=== PATIENT | male | born 1955 | race Caucasian/White ===

== ENCOUNTER → 2017-01-12 | Outpatient (CLI) | payer OTHER ==
[2017-01-12 21:16] LABS: Basophils % (A) 1 %; CH 27.5; CHCM 31.2; Eosinophils # (A) 0.1 k/uL (0-0.7); Eosinophils % (A) 3 %; HCT 43.3 % (39.0-53.0); HDW 2.31; HGB 13.1 gm/dL (13.0-17.5); Hypochromasia Slight; Luc # (Auto) 0.07; Luc % (Auto) 1; Lymphocytes # (A) 1.7 k/uL (1.0-4.8); Lymphocytes % (A) 33 %; MCH 26.8 pg (25.0-35.0); MCHC 30.2 g/dL (31.0-37.0); MCV 88.8 fL (80.0-100.0); Mean Platelet Volume 8.4; Monocytes # (A) 0.3 k/uL (0-1.0); Monocytes % (A) 6 %; Neutrophils # (A) 2.9 k/uL (1.3-7.7); Neutrophils % (A) 57 %; RBC 4.88 m/uL (4.30-5.90); RDW 12.8 % (11.5-15.5); WBC 5.1 k/uL (3.8-10.6); WBC (Perox) 5.26
[2017-01-12 21:17] LABS: INR 2.7 (<1.2); Prothrombin Time 25.7 sec (9.0-12.0)
[2017-01-12 21:30] LABS: ALT 47 U/L (21-72); AST 34 U/L (17-59); Alkaline Phosphatase 80 U/L (38-126); Anion Gap 10 mmol/L; Blood Urea Nitrogen 15 mg/dL (9-20); Calcium 9.3 mg/dL (8.4-10.2); Carbon Dioxide 29 mmol/L (22-30); Chloride 99 mmol/L (98-107); Cholesterol 173 mg/dL (<200); Glucose 132 mg/dL (74-99); HDL Cholesterol 44 mg/dL (40-60); Non-African American GFR(MDRD) >60 (>60 ml/min/1.73 sqM); Potassium 3.9 mmol/L (3.5-5.1); Sodium 138 mmol/L (137-145); Total Bilirubin 0.3 mg/dL (0.2-1.3); Total Protein 6.8 g/dL (6.3-8.2)
[2017-01-13 03:21] LABS: Urine Creatinine 190.1 mg/dL
== END ==
LOC: MMGSC 11:57
PROVIDERS: ATTEND Family Medicine
DX: Z00.00 Encounter for general adult medical examination without abnormal findings (principal); R73.02 Impaired glucose tolerance (oral); Z51.81 Encounter for therapeutic drug level monitoring; Z79.01 Long term (current) use of anticoagulants; Z12.5 Encounter for screening for malignant neoplasm of prostate
CPT/HCPCS: 84439; 80061; 80053; 84443; 85025; 85610; 82043; 82570; 83036; 36415; G0103

== ENCOUNTER → 2017-07-28 | Outpatient (CLI) | payer OTHER ==
--- NOTE | 2017-07-28 14:23 | XR ---
Cervical spine HISTORY: Neck pain, trauma 5 views of the cervical spine There is multilevel spondylosis with foraminal encroachment present greatest at C3-4, C5-6 and C6-7 b ilaterally. Minimal retrolisthesis grade 1 C5-6, there is loss of disc height C5-6 and C6-7 with asso ciated spondylosis. Multilevel facet arthropathy is noted. Prevertebral soft tissues are normal. Cerv ical vertebral bodies show preserved height. Minimal grade 1 anterolisthesis C3-4. Odontoid view some what limited. IMPRESSION: Degenerative disc disease and facet arthropathy. Ligamentous laxity suspected, flexion-ex tension views or cervical MRI may be of benefit.
== END | disposition home or self-care (01) ==
LOC: RADXRMAIN 12:41
PROVIDERS: ATTEND Family Medicine
DX: M50.30 Other cervical disc degeneration, unspecified cervical region (principal); M46.92 Unspecified inflammatory spondylopathy, cervical region
CPT/HCPCS: 72050

== ENCOUNTER → 2017-08-04 | Outpatient (CLI) | payer OTHER ==
--- NOTE | 2017-08-04 16:13 | XR ---
Left elbow HISTORY: Trauma and pain 3 views of the left elbow Arthropathy changes present, there is joint space loss. Alignment and bone mineralization are normal. There is no evident joint effusion. Subchondral geode formation thought present in the lateral humer al condyle. Calcification present at the insertion of the triceps tendon. There may be small loose erinn dy within the elbow joint anteriorly. 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 Possible calcific tendinitis, cons ider elbow MRI. No acute fracture or dislocation evident.
== END | disposition home or self-care (01) ==
LOC: RADXRMAIN 14:45
PROVIDERS: ATTEND Family Medicine
DX: M19.022 Primary osteoarthritis, left elbow (principal)